=== PATIENT | female | born 1985 ===

== ENCOUNTER 2016-08-13 23:05 | Emergency (ER) | payer SELFPAY | END 2016-08-14 00:15 | disposition left against medical advice (07) | LOC: ED 23:05 | DX: Z53.21 Procedure and treatment not carried out due to patient leaving prior to being seen by health care provider (principal) ==

== ENCOUNTER 2016-09-07 07:59 | Emergency (ER) | payer OTHER ==
[2016-09-07] MEDS ORDERED: FLEXERIL PO ONE (10:00)
[2016-09-07] MEDS ORDERED: MOTRIN PO ONE (10:00)
--- NOTE | 2016-09-07 10:05 | Emergency Department Report ---
ED General Adult HPI - General Chief complaint: Neck Pain/Injury Stated complaint: NECK PAIN Time Seen by Provider: 09/07/16 09:53 Source: patient, family Mode of arrival: Ambulatory Limitations: No Limitations - History of Present Illness Initial comments: PT c/o neck pain without injury x 5 days. PT states the pain can be on either side of her neck. PT states yesterday the left side of her neck was painful and she had a swollen knot. PT states today the right side of her neck is painful and she has a swollen knot. PT denies fevers, chills, cough, sore throat, and fatigue. MD Complaint: neck pain -: Gradual, days(s) (5) Location: neck Radiation: non-radiation Severity scale (0 -10): 6 Quality: constant Consistency: constant Improves with: none Worsens with: none Associated Symptoms: denies other symptoms. denies: chest pain, cough, fever/ chills, nausea/vomiting Treatments Prior to Arrival: none - Related Data Previous Rx's Medication Instructions Recorded Last Taken Type Ibuprofen [Motrin] 600 mg PO Q8H PRN #15 tablet 09/07/16 Unknown Rx methOCARBAMOL [Robaxin TAB] 500 mg PO Q6H PRN #15 tablet 09/07/16 Unknown Rx Allergies Allergy/AdvReac Type Severity Reaction Status Date / Time No Known Allergies Allergy Unverified 09/07/16 08:02 ED Review of Systems ROS: Stated complaint: NECK PAIN Other details as noted in HPI Comment: All other systems reviewed and negative Constitutional: denies: chills, fever, weakness ENT: denies: ear pain, throat pain Respiratory: denies: cough, shortness of breath Gastrointestinal: denies: nausea, vomiting Musculoskeletal: as per HPI. denies: back pain Skin: denies: rash Hematological/Lymphatic: swollen glands. denies: easy bleeding ED Past Medical Hx - Past Medical History Previous Medical History?: No - Surgical History Past Surgical History?: No - Social History Smoking Status: Never Smoker Substance Use Type: Non Opiate Pain - Medications Home Medications: Home Medications Medication Instructions Recorded Confirmed Last Taken Type Ibuprofen [Motrin] 600 mg PO Q8H PRN #15 tablet 09/07/16 Unknown Rx methOCARBAMOL [Robaxin TAB] 500 mg PO Q6H PRN #15 tablet 09/07/16 Unknown Rx ED Physical Exam - General Limitations: No Limitations General appearance: alert, in no apparent distress, other (thin) - Head Head exam: Present: atraumatic, normocephalic - Eye Eye exam: Present: normal appearance, PERRL, EOMI. Absent: conjunctival injection, nystagmus - ENT ENT exam: Present: normal exam, normal orophraynx, mucous membranes moist, TM's normal bilaterally, normal external ear exam - Neck Neck exam: Present: normal inspection, tenderness, full ROM, lymphadenopathy (R ant cervical ) - Respiratory Respiratory exam: Present: normal lung sounds bilaterally. Absent: respiratory distress, wheezes, chest wall tenderness, accessory muscle use, decreased breath sounds - Cardiovascular Cardiovascular Exam: Present: regular rate, normal rhythm, normal heart sounds - GI/Abdominal GI/Abdominal exam: Present: soft. Absent: tenderness - Extremities Exam Extremities exam: Present: normal inspection, full ROM, normal capillary refill. Absent: tenderness - Back Exam Back exam: Present: normal inspection, full ROM. Absent: tenderness, CVA tenderness (R), CVA tenderness (L), muscle spasm, paraspinal tenderness, vertebral tenderness - Neurological Exam Neurological exam: Present: alert, oriented X3, normal gait - Psychiatric Psychiatric exam: Present: normal affect, normal mood - Skin Skin exam: Present: warm, dry, intact, normal color ED Course Vital Signs 09/07/16 09/07/16 08:03 11:52 Temperature 98.3 F Pulse Rate 75 80 Respiratory 20 16 Rate Blood Pressure 113/66 Blood Pressure 114/75 [Left] O2 Sat by Pulse 100 97 Oximetry - Reevaluation(s) Reevaluation #1: 09/07/16 10:05 PT and pt's family member aware of plan of care. Reevaluation #2: 09/07/16 11:40 PT aware of lab results and plan of care. PT aware she will need to follow up with PCP. PT verbalizes understanding. PT states neck pain improved after Motrin/flexeril - Pulse Oximetry Interpretation Digit-Finger Initial Pulse Oximetry Readin Actions Taken: none ED Medical Decision Making - Lab Data Result diagrams: 09/07/16 10:22 09/07/16 10:22 Lab Results 09/07/16 09/07/16 Range/Units 10:22 10:22 WBC 5.1 (4.5-11.0) K/mm3 RBC 4.29 (3.65-5.03) M/mm3 Hgb 11.8 (10.1-14.3) gm/dl Hct 35.3 (30.3-42.9) % MCV 82 (79-97) fl MCH 28 (28-32) pg MCHC 33 (30-34) % RDW 14.3 (13.2-15.2) % Plt Count 290 (140-440) K/mm3 Lymph % (Auto) 41.3 H (13.4-35.0) % Parke % (Auto) 7.7 H (0.0-7.3) % Eos % (Auto) 0.8 (0.0-4.3) % Baso % (Auto) 0.9 (0.0-1.8) % Lymph # 2.1 (1.2-5.4) K/mm3 Parke # 0.4 (0.0-0.8) K/mm3 Eos # 0.0 (0.0-0.4) K/mm3 Baso # 0.0 (0.0-0.1) K/mm3 Seg Neutrophils % 49.3 (40.0-70.0) % Seg Neutrophils # 2.5 (1.8-7.7) K/mm3 Sodium 139 (137-145) mmol/L Potassium 4.0 (3.6-5.0) mmol/L Chloride 102.7 (98-107) mmol/L Carbon Dioxide 23 (22-30) mmol/L Anion Gap 17 mmol/L BUN 18 H (7-17) mg/dL Creatinine 0.6 L (0.7-1.2) mg/dL Estimated GFR > 60 ml/min BUN/Creatinine Ratio 30.00 % Glucose 71 (65-100) mg/dL Calcium 8.6 (8.4-10.2) mg/dL Total Bilirubin 0.30 (0.1-1.2) mg/dL AST 22 (5-40) units/L ALT 19 (7-56) units/L Alkaline Phosphatase 46 (35-129) units/L Total Protein 6.9 (6.3-8.2) g/dL Albumin 4.1 (3.9-5) g/dL Albumin/Globulin Ratio 1.5 % - Differential Diagnosis viral illness, lymphadenopathy, strain Critical Care Time: No Critical care attestation.: If time is entered above; I have spent that time in minutes in the direct care of this critically ill patient, excluding procedure time. ED Disposition Clinical Impression: Anterior cervical adenopathy, Neck pain, acute Disposition: DISCHARGED TO HOME OR SELFCARE Is pt being admited?: No Does the pt Need Aspirin: No Condition: Stable Instructions: Cervical Spine Strain (ED), Lymphadenopathy (ED) Additional Instructions: No driving or ETOH after taking Robaxin Follow up with PCP in 2-3 days Prescriptions: Ibuprofen [Motrin] 600 mg PO Q8H PRN #15 tablet PRN Reason: Pain methOCARBAMOL [Robaxin TAB] 500 mg PO Q6H PRN #15 tablet PRN Reason: Muscle Spasm Referrals: PRIMARY CAREMD [Primary Care Provider] - 3-5 Days MARIA E ALMANZA MD [Staff Physician] - 3-5 Days [facility] [Outside] - 3-5 Days [facility] [Outside] - 3-5 Days Forms: Accompanied Note Time of Disposition: 11:44
[2016-09-07 10:32] LABS: Basophils % (Auto) 0.9 % (0.0-1.8); Eosinophils % (Auto) 0.8 % (0.0-4.3); Hematocrit 35.3 % (30.3-42.9); Hemoglobin 11.8 gm/dl (10.1-14.3); Mean Corpuscular HGB Conc 33 % (30-34); Mean Corpuscular Hemoglobin 28 pg (28-32); Mean Corpuscular Volume 82 fl (79-97); Platelet Count 290 K/mm3 (140-440); Red Blood Count 4.29 M/mm3 (3.65-5.03); Red Cell Distribution Width 14.3 % (13.2-15.2); White Blood Count 5.1 K/mm3 (4.5-11.0)
[2016-09-07 10:54] LABS: Alanine Aminotransferase 19 units/L (7-56); Albumin 4.1 g/dL (3.9-5); Albumin/Globulin Ratio 1.5 %; Alkaline Phosphatase 46 units/L (35-129); Anion Gap 17 mmol/L; Blood Urea Nitrogen 18 mg/dL (7-17); Calcium 8.6 mg/dL (8.4-10.2); Carbon Dioxide 23 mmol/L (22-30); Chloride 102.7 mmol/L (98-107); Glucose 71 mg/dL (65-100); Sodium 139 mmol/L (137-145); Total Protein 6.9 g/dL (6.3-8.2)
[2016-09-07 11:52] VITALS: BP 114/75
== END 2016-09-07 11:54 | disposition home or self-care (01) ==
LOC: ED 07:59
DX: R59.0 Localized enlarged lymph nodes (principal)
CPT/HCPCS: 36415; 80053; 85025; 99283

== ENCOUNTER 2018-02-01 22:27 | Emergency (ER) | payer OTHER ==
[2018-02-01 22:53] VITALS: BP 115/67
[2018-02-01 23:34] LABS: Hematocrit 32.6 % (30.3-42.9); Hemoglobin 11.2 gm/dl (10.1-14.3); Mean Corpuscular HGB Conc 34 % (30-34); Mean Corpuscular Hemoglobin 28 pg (28-32); Mean Corpuscular Volume 83 fl (79-97); Platelet Count 312 K/mm3 (140-440); Red Blood Count 3.94 M/mm3 (3.65-5.03); Red Cell Distribution Width 14.1 % (13.2-15.2)
[2018-02-02 00:09] LABS: BUN/Creatinine Ratio 18; Blood Urea Nitrogen 11 mg/dL (7-17); Calcium 9.3 mg/dL (8.4-10.2); Hemolysis Index 11
[2018-02-02 00:44] LABS: Bacteria,Urine 1+ /HPF (Negative); Bilirubin,Urine NEG (Negative); Blood,Urine NEG (Negative); Calcium Oxalate Crystals,Urine 2+; Color,Urine Yellow (Yellow); Mucus,Urine 2+ /HPF; Protein,Urine <15 mg/dL mg/dL (Negative); Urobilinogen,Urine < 2.0 mg/dL (<2.0)
[2018-02-02] MEDS ORDERED: KEFLEX PO ONE (01:46)
[2018-02-02] MEDS ORDERED: TYLENOL PO ONE (01:46)
--- NOTE | 2018-02-02 02:23 | Emergency Department Report ---
ED General Adult HPI - General Chief complaint: Dizziness Stated complaint: SOB 6 WEEKS PREG Time Seen by Provider: 02/02/18 01:30 Source: patient Mode of arrival: Ambulatory Limitations: No Limitations - History of Present Illness Initial comments: Patient is a 32-year-old Afro-Lithuanian female who is 6 weeks . Her dizziness intermittent shortness of breath 3 weeks is no nausea or vomiting no headache no fever or chills pt is G3,P2, A0 state symptom relieved by rest worse in am, pt denies vaginal bleeding no vaginal discharge pt is tolerating po intake at this time without n/v last dizziness episode was 1 week ao. Onset/Timin -: week(s) Radiation: non-radiation Severity scale (0 -10): 4 Consistency: intermittent Improves with: rest Worsens with: movement Associated Symptoms: confusion. denies: chest pain, cough, diaphoresis, fever/ chills, headaches, loss of appetite, malaise, nausea/vomiting, rash, seizure, shortness of breath, syncope Treatments Prior to Arrival: none - Related Data Previous Rx's Medication Instructions Recorded Last Taken Type Ibuprofen [Motrin] 600 mg PO Q8H PRN #15 tablet 09/07/16 Unknown Rx methOCARBAMOL [Robaxin TAB] 500 mg PO Q6H PRN #15 tablet 09/07/16 Unknown Rx Acetaminophen [Tylenol] 650 mg PO QID PRN #30 capsule 02/02/18 Unknown Rx Cephalexin [Keflex] 500 mg PO BID #20 capsule 02/02/18 Unknown Rx diphenhydrAMINE [Benadryl CAP] 25 mg PO Q8HR PRN #30 capsule 02/02/18 Unknown Rx Allergies Allergy/AdvReac Type Severity Reaction Status Date / Time No Known Allergies Allergy Verified 02/02/18 01:49 ED Review of Systems ROS: Stated complaint: SOB 6 WEEKS PREG Other details as noted in HPI Constitutional: denies: chills, fever Eyes: denies: eye pain, eye discharge, vision change ENT: denies: ear pain, throat pain Respiratory: denies: cough, shortness of breath, wheezing Cardiovascular: denies: chest pain, palpitations Endocrine: no symptoms reported Gastrointestinal: denies: abdominal pain, nausea, diarrhea Genitourinary: denies: urgency, dysuria, discharge Musculoskeletal: denies: back pain, joint swelling, arthralgia, myalgia Skin: denies: rash, lesions Neurological: denies: headache, weakness, paresthesias Psychiatric: denies: anxiety, depression Hematological/Lymphatic: denies: easy bleeding, easy bruising ED Past Medical Hx - Past Medical History Previous Medical History?: No - Surgical History Past Surgical History?: No - Social History Smoking Status: Never Smoker Substance Use Type: None - Medications Home Medications: Home Medications Medication Instructions Recorded Confirmed Last Taken Type Ibuprofen [Motrin] 600 mg PO Q8H PRN #15 tablet 09/07/16 Unknown Rx methOCARBAMOL [Robaxin TAB] 500 mg PO Q6H PRN #15 tablet 09/07/16 Unknown Rx Acetaminophen [Tylenol] 650 mg PO QID PRN #30 capsule 02/02/18 Unknown Rx Cephalexin [Keflex] 500 mg PO BID #20 capsule 02/02/18 Unknown Rx diphenhydrAMINE [Benadryl CAP] 25 mg PO Q8HR PRN #30 capsule 02/02/18 Unknown Rx ED Physical Exam - General Limitations: No Limitations General appearance: alert, in no apparent distress - Head Head exam: Present: atraumatic, normocephalic - Eye Eye exam: Present: normal appearance, PERRL, EOMI Pupils: Present: normal accommodation - ENT ENT exam: Present: normal orophraynx, mucous membranes dry, mucous membranes moist, TM's normal bilaterally - Neck Neck exam: Present: normal inspection, tenderness, meningismus, full ROM. Absent: lymphadenopathy, thyromegaly - Respiratory Respiratory exam: Present: wheezes. Absent: rhonchi, stridor, chest wall tenderness - Cardiovascular Cardiovascular Exam: Present: regular rate, normal rhythm, normal heart sounds. Absent: systolic murmur, diastolic murmur, rubs, gallop - GI/Abdominal GI/Abdominal exam: Present: soft, normal bowel sounds. Absent: tenderness - Rectal Rectal exam: Present: deferred - External exam: Present: normal external exam Speculum exam: Present: normal speculum exam - Extremities Exam Extremities exam: Present: normal inspection, full ROM, pedal edema, joint swelling. Absent: tenderness - Back Exam Back exam: Present: normal inspection, full ROM, tenderness, muscle spasm. Absent: CVA tenderness (R), CVA tenderness (L), paraspinal tenderness, vertebral tenderness, rash noted - Neurological Exam Neurological exam: Present: alert, oriented X3, CN II-XII intact, normal gait, reflexes normal - Expanded Neurological Exam Expanded Patient oriented to: Present: person, place, time Speech: Present: fluid speech Cranial nerves: EOM's Intact: Normal, Gag Reflex: Normal, Tongue Deviation: Normal, Nystagmus: Normal, Facial Sensation: Normal, Facial Palsy with Forehead Movement: Normal, Facial Palsy without Forehead Movement: Normal Cerebellar function: Finger to Nose: Normal, Heel to [place]: Normal, Romberg: Normal Upper motor neuron: Javi Neglect: Normal, Pronator Drift: Normal, Babinski Sign : Normal, Sensory Extinction: Normal Sensory exam: Upper Extremity Light Touch: Normal, Upper Extremity Pin Prick: Normal, Upper Extremity Temperature: Normal, UE 2 Point Discrimination: Normal, Lower Extremity Light Touch: Normal, Lower Extremity Pin Prick: Normal, Lower Extremity Temperature: Normal, LE 2 Point Discrimination: Normal Motor strength exam: RUE: 5, LUE: 5, RLE: 5, LLE: 5 DTR: bicep (R): 2+, bicep (L): 2+, tricep (R): 2+, tricep (L): 2+, knee (R): 2+ , knee (L): 2+, ankle (R): 2+, ankle (L): 2+ Best Eye Response (Hugo): (4) open spontaneously Best Motor Response (Hugo): (6) obeys commands Best Verbal Response (Dante): (5) oriented Dante Total: 15 - Psychiatric Psychiatric exam: Present: normal affect, normal mood - Skin Skin exam: Present: warm, dry, intact, normal color. Absent: rash ED Course Vital Signs 02/01/18 02/01/18 22:52 22:54 Temperature 98.4 F 98.4 F Pulse Rate 71 100 H Respiratory 18 18 Rate Blood Pressure 115/67 115/67 O2 Sat by Pulse 100 100 Oximetry ED Medical Decision Making - Lab Data Result diagrams: 02/01/18 23:19 02/01/18 23:19 - EKG Data -: EKG Interpreted by Nd EKG shows normal: sinus rhythm (interp by ED attending ) Rate: normal - EKG Data Interpretation: no acute changes - Medical Decision Making UA support UTI, all other labesed WNL, plan: keflex 500 mg po bid follow up with pcp in 2-3 dfays follow up with OBGYN as scheduled pt vergbalized agrrement and understanding of discharged plan. pt for dc to home in stable condition Critical care attestation.: If time is entered above; I have spent that time in minutes in the direct care of this critically ill patient, excluding procedure time. ED Disposition Clinical Impression: UTI (urinary tract infection) during Qualifiers: Trimester: first trimester Qualified Code(s): O23.41 - Unspecified infection of urinary tract in , first trimester Disposition: DC-01 TO HOME OR SELFCARE Is pt being admited?: No Does the pt Need Aspirin: No Condition: Stable Instructions: Urinary Tract Infection in Women (ED) Prescriptions: Acetaminophen [Tylenol] 650 mg PO QID PRN #30 capsule PRN Reason: Pain , Severe (7-10) Cephalexin [Keflex] 500 mg PO BID #20 capsule diphenhydrAMINE [Benadryl CAP] 25 mg PO Q8HR PRN #30 capsule PRN Reason: dizziness Referrals: OUSMANE GODFREY MD [Staff Physician] - 3-5 Days Forms: Work/School Release Form(ED) Time of Disposition: 02:38
== END 2018-02-02 04:54 | disposition home or self-care (01) ==
LOC: ED 22:27
DX: O23.41 Unspecified infection of urinary tract in pregnancy, first trimester (principal); O26.891 Other specified pregnancy related conditions, first trimester; R42 Dizziness and giddiness; R06.02 Shortness of breath; Z3A.01 Less than 8 weeks gestation of pregnancy
CPT/HCPCS: 36415; 80048; 81001; 84702; 85027; 93005; 93010; 99283

== ENCOUNTER 2018-09-10 19:35 | Inpatient (IN) | payer OTHER ==
[2018-09-10] MEDS ORDERED: SUBLIMAZE IV PRN (20:28)
[2018-09-10] MEDS ORDERED: XYLOCAINE 2% INFILTRATI ONE ×2 (20:28→23:55)
[2018-09-10] MEDS ORDERED: BRETHINE SUB-Q PRN (20:28)
--- NOTE | 2018-09-10 20:35 | History and Physical Report ---
History of Present Illness Date of examination: 09/10/18 Date of admission: 09/10/2018 Chief complaint: Contractions History of present illness: 33 year old female presents to L&D with contractions; leaking of fluid with meconium fluid noted upon arrival to triage today. Patient reports active movement. Patient denies vaginal bleeding. Patient has received care at [facility]. LMP 12/12/17. EDC 09/18/18. significant for the following: UTI (treated with Cephalexin), hemoglobin C trait, vitamin D deficiency (supplemented with Vitamin D), lapse in care, anemia (supplemented with iron). labs are as follows: O+, antibody screen negative, pap smear normal, rubella immune, RPR nonreactive, hepatitis B surface antigen negative, HIV negative, hemoglobin electrophoresis hemoglobin C trait, GC negative, CT negati ve, trichomonas negative, quad screen negative, GBS negative, 1 hour sugar test 92. 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 denies: smoking, alcohol abuse, prescription drug abuse, IV drug use - Obstetrical History Expected Date of Delivery: 09/18/18 Actual Gestation: 38 Week(s) 6 Day(s) : 3 Para: 2 Hx # Term Pregnancies: 3 Number of Pregnancies: 0 Spontaneous Abortions: 0 Induced : 0 Number of Living Children: 2 Medications and Allergies Allergies Allergy/AdvReac Type Severity Reaction Status Date / Time No Known Allergies Allergy Verified 02/02/18 01:49 Home Medications Medication Instructions Recorded Confirmed Last Taken Type Ferrous Sulfate [Iron 325 MG] 325 mg PO QDAY 09/10/18 09/10/18 09/09/18 History Review of Systems All systems: negative (leaking of fluid and contractions) - Vital Signs Vital signs: Vital Signs Pulse Pulse Ox 87 98 09/10/18 19:57 09/10/18 19:57 Temp Pulse Resp BP Pulse Ox 98.5 F 83 22 134/91 100 09/10/18 19:59 09/10/18 20:27 09/10/18 19:59 09/10/18 20:17 09/10/18 20:27 - Physical Exam Abdomen: Positive: normal appearance, soft. Negative: distention, tenderness, guarding, rigidity Genitourinary (Female): Positive: normal external genitalia, normal perenium. Negative: perineal/vulvar lesions Vagina: Positive: other (meconium stained amniotic fluid) Uterus: Positive: enlarged (size=dates) Anus/Rectum: Positive: normal perianal skin Extremities: Positive: normal. Negative: tenderness, edema - Obstetrical FHR: category 1 Uterine Contraction Monitor Mode: External Cervical Dilatation: 6 (Exam per RN upon admission) Uterine Contraction Pattern: Regular Uterine Contraction Intensity: Moderate Results All other labs normal. Assessment and Plan A: at 38 weeks, 6 days gestation. Active advanced labor. SROM with meconium stained amniotic fluid. GBS negative. P: Admit. Continuous EFM. Anticipate vaginal .
[2018-09-10 20:58] LABS: Hemoglobin 10.7 gm/dl (10.1-14.3); Mean Corpuscular HGB Conc 34 % (30-34); Mean Corpuscular Volume 84 fl (79-97); Platelet Count 293 K/mm3 (140-440); Red Blood Count 3.82 M/mm3 (3.65-5.03); Red Cell Distribution Width 17.9 % (13.2-15.2)
[2018-09-10] MEDS ORDERED: LACTATED RINGERS 1,000 ML IV SCH (21:00)
[2018-09-10] MEDS ORDERED: PITOCin/NS 20 UNIT/1000ML DRIP 20 UNITS/1,000 ML BAG IV SCH (21:00)
[2018-09-11] MEDS ORDERED: PERCOCET 5/325 PO PRN (00:19)
[2018-09-11] MEDS ORDERED: LANSINOH TP PRN (00:19)
[2018-09-11] MEDS ORDERED: ZOFRAN IV PRN (00:19)
[2018-09-11] MEDS ORDERED: DULCOLAX PR PRN (00:19)
[2018-09-11] MEDS ORDERED: ANUCORT-HC PR PRN (00:19)
[2018-09-11] MEDS ORDERED: TORADOL IV PRN (00:19)
[2018-09-11] MEDS ORDERED: PHENERGAN PO PRN (00:19)
[2018-09-11] MEDS ORDERED: DERMOPLAST TP PRN (00:19)
[2018-09-11] MEDS ORDERED: TYLENOL PO PRN (00:19)
[2018-09-11] MEDS ORDERED: TUCKS PAD TP PRN (00:19)
[2018-09-11] MEDS ORDERED: PHENERGAN PR PRN (00:19)
[2018-09-11] MEDS ORDERED: BENADRYL PO PRN (00:19)
[2018-09-11] MEDS ORDERED: MILK OF MAGNESIA PO PRN (00:19)
--- NOTE | 2018-09-11 00:30 | Procedure Note ---
OB Delivery Note - Delivery Date of Delivery: 09/11/18 Surgeon: OUSMANE GODFREY Estimated blood loss: 200cc - Vaginal Delivery presentation: vertex Delivery position: OA Intrapartum events: none Delivery induction: none Delivery monitor: external FHT Route of delivery: Delivery placenta: spontaneous Delivery cord: nuchal cord Episiotomy: none Delivery laceration: 1st degree Delivery repair: vicryl Anesthesia: local Delivery comments: Patient became fully dilated. There was severe variable decelerations and meconium amniotic fluid. She delivered a live male from and CHARLES position with Apgars of 8 at 1 min and 9 at 5 mins at 11:49 PM. There was nuchal cord x 1 with compression. Bulb suction of the mouth and nose was performed, the cord was clamped x 2 and cut, and the infant was handed to the waiting rfid specialist. Baby weighs 6 lbs 14 oz. Cord blood was collected. The placenta was delivered spontaneously and it was complete with a 3-vessel cord. A first degree perineal laceration was sustained. It was repaired with 3 vicryl sutures. EBL was 200 cc. Patient remains stable.
[2018-09-11] MEDS ORDERED: SODIUM CHLORIDE FLUSH SYRINGE 10 ML IV PRN (01:00)
[2018-09-11] MEDS ORDERED: PITOCin/NS 20 UNIT/1000ML DRIP 20 UNITS/1,000 ML BAG IV SCH (01:00)
[2018-09-11 01:58] LABS: Bacteria,Urine 1+ /HPF (Negative); Bilirubin,Urine NEG (Negative); Blood,Urine LG (Negative); Color,Urine Yellow (Yellow); Mucus,Urine FEW /HPF; Urobilinogen,Urine < 2.0 mg/dL (<2.0)
[2018-09-11 02:03] LABS: RBC,Urine > 182.0 /HPF (0.0-6.0)
[2018-09-11] MEDS: SENOKOT S PO SCH ×3 (02:09→21:50)
[2018-09-11] MEDS: IBUPROFEN PO SCH ×4 (02:09→18:10)
[2018-09-11 05:59] LABS: Alanine Aminotransferase 11 units/L (7-56); Albumin 2.7 g/dL (3.9-5); BUN/Creatinine Ratio 18; Blood Urea Nitrogen 9 mg/dL (7-17); Calcium 8.4 mg/dL (8.4-10.2); Hemolysis Index 4
[2018-09-11 06:18] LABS: Uric Acid 4.9 mg/dL (3.5-7.6)
[2018-09-11] MEDS: PRENATAL VITAMIN PO SCH (10:45)
[2018-09-11] MEDS: COLACE PO SCH ×2 (10:45→21:49)
[2018-09-11 12:32] LABS: Hemoglobin 9.2 gm/dl (10.1-14.3)
--- NOTE | 2018-09-11 13:21 | Progress Note ---
Assessment and Plan - Patient Problems (1) Status post normal vaginal delivery Current Visit: Yes Status: Acute Plan to address problem: PPD 1 - stable Continue routine orders Discharge to home on 09/12/18 Desires control pills for contraception Follow-up at [facility] as needed or in 6 weeks for exam (2) Anemia due to blood loss, acute Current Visit: Yes Status: Acute Plan to address problem: Asymptomatic Iron therapy initiated Subjective - Subjective Date of service: 09/11/18 Principal diagnosis: PPD #1; s/p Interval history: see H&P and OB Delivery Procedure Note Patient reports: appetite normal, voiding normally, pain well controlled, ambulating normally, no dizzy ambulation [place]: doing well, nursing well Objective - Vital Signs Latest vital signs: Vital Signs Temp Pulse Resp BP Pulse Ox 09/11/18 09:16 98.3 F 82 20 106/65 99 09/11/18 06:13 18 09/11/18 03:42 18 09/11/18 03:09 18 09/11/18 00:52 75 135/67 09/11/18 00:29 89 99 09/11/18 00:24 95 H 98 09/11/18 00:22 94 H 124/72 09/11/18 00:19 89 98 09/11/18 00:14 85 98 09/11/18 00:09 90 99 09/11/18 00:07 89 119/62 09/11/18 00:04 91 H 98 09/10/18 23:59 88 98 09/10/18 23:54 88 100 09/10/18 23:53 92 H 122/81 09/10/18 23:49 84 100 09/10/18 23:46 104 H 91 09/10/18 23:43 83 100 09/10/18 23:37 79 98 09/10/18 23:32 77 100 09/10/18 22:50 82 169/92 09/10/18 22:18 96 H 135/79 09/10/18 22:02 66 145/88 09/10/18 21:49 85 141/100 09/10/18 21:19 75 135/77 09/10/18 20:56 80 136/84 09/10/18 20:55 98.5 F 16 09/10/18 20:37 75 100 09/10/18 20:32 75 128/86 99 09/10/18 20:27 83 100 09/10/18 20:22 89 99 09/10/18 20:17 82 134/91 99 09/10/18 20:16 83 141/91 09/10/18 20:12 87 99 09/10/18 20:07 71 99 09/10/18 20:02 74 99 09/10/18 19:59 98.5 F 71 22 132/84 09/10/18 19:57 87 98 Intake and Output 09/10/18 09/11/18 09/11/18 23:59 07:59 15:59 Intake Total 240 Balance 240 Intake: Oral 240 Other: Total, Intake Amount 240 # Voids Void 2 Weight 77.564 kg Estimated Blood Loss 200 - Exam Cardiovascular: Present: Regular rate Lungs: Present: Clear to auscultation Abdomen: Present: normal appearance, soft Vulva: both: laceration/episiotomy (well approximated) Uterus: Present: normal, firm, fundal height at umbilicus Extremities: Present: normal Comments: small lochia - Labs Labs: Abnormal lab results 09/10/18 09/11/18 09/11/18 Range/Units 20:30 01:00 05:19 Hgb (10.1-14.3) gm/dl Hct (30.3-42.9) % RDW 17.9 H (13.2-15.2) % Chloride 109.8 H (98-107) mmol/L Carbon Dioxide 19 L (22-30) mmol/L Creatinine 0.5 L (0.7-1.2) mg/dL Glucose 117 H (65-100) mg/dL Lactate Dehydrogenase 195 H (91-180) units/L Total Protein 5.7 L (6.3-8.2) g/dL Albumin 2.7 L (3.9-5) g/dL Urine WBC (Auto) 8.0 H (0.0-6.0) /HPF 09/11/18 Range/Units 12:18 Hgb 9.2 L (10.1-14.3) gm/dl Hct 27.0 L (30.3-42.9) % RDW (13.2-15.2) % Chloride (98-107) mmol/L Carbon Dioxide (22-30) mmol/L Creatinine (0.7-1.2) mg/dL Glucose (65-100) mg/dL Lactate Dehydrogenase (91-180) units/L Total Protein (6.3-8.2) g/dL Albumin (3.9-5) g/dL Urine WBC (Auto) (0.0-6.0) /HPF
--- NOTE | 2018-09-11 13:24 | Discharge Summary ---
Providers - Providers Date of Admission: 09/10/18 20:39 Date of discharge: 09/12/18 Attending physician: OUSMANE GODFREY MD Primary care physician: OUSMANE GODFREY MD Hospitalization Reason for admission: active labor, IUP at term Delivery: Episiotomy: none Laceration: 1st degree (perineal) Other procedures: none complications: none Discharge diagnosis: IUP at term delivered baby: male Hospital course: Uncomplicated Condition at discharge: Stable Disposition: WA-01 TO HOME OR SELFCARE - Discharge Diagnoses (1) Status post normal vaginal delivery Status: Acute (2) Anemia due to blood loss, acute Status: Acute Comment: Asymptomatic Continue iron therapy Plan - Discharge Medications Prescriptions: Ferrous Sulfate [Feosol 325 MG tab] 325 mg PO BID #60 tablet - Provider Discharge Summary Activity: routine, no sex for 6 weeks, no heavy lifting 4 weeks, no strenuous exercise Diet: routine Instructions: routine Additional instructions: [] Smoking cessation referral if applicable(refer to patient education folder for contact #) [] Refer to [facility] Booklet Call your doctor immediately for: * Fever > 100.5 * Heavy vaginal bleeding ( >1 pad per hour) * Severe persistent headache * Shortness of breath * Reddened, hot, painful area to leg or breast * Drainage or odor from incision. * Keep incision clean and dry at all times and follow doctor's instructions regarding bathing/showering - Follow up plan Follow up: OUSMANE GODFREY MD [Primary Care Provider] - 6 Weeks (Follow-up at [facility] as needed or in 6 weeks for exam)
[2018-09-11] MEDS: FEOSOL PO SCH (21:49)
[2018-09-12] MEDS: IBUPROFEN PO SCH ×4 (00:06→18:40)
[2018-09-12] MEDS: COLACE PO SCH (10:10)
[2018-09-12] MEDS: SENOKOT S PO SCH (10:10)
[2018-09-12] MEDS: FEOSOL PO SCH (10:10)
[2018-09-12] MEDS: PRENATAL VITAMIN PO SCH (10:10)
[2018-09-12 16:50] VITALS: BP 124/78
== END 2018-09-12 19:35 | disposition home or self-care (01) | DRG 806 ==
LOC: TRG 19:35 → LD 20:39 → OB 09-11 01:14
PROVIDERS: ADMIT Obstetrics & Gynecology; ATTEND Obstetrics & Gynecology
PROC: 10E0XZZ Delivery of Products of Conception, External Approach (ICD-10-PCS; principal; 2018-09-11)
PROC: 0HQ9XZZ Repair Perineum Skin, External Approach (ICD-10-PCS; 2018-09-11)
DX: O77.0 Labor and delivery complicated by meconium in amniotic fluid (principal); D62 Acute posthemorrhagic anemia; Z37.0 Single live birth; O70.0 First degree perineal laceration during delivery; O90.81 Anemia of the puerperium; O69.1XX0 Labor and delivery complicated by cord around neck, with compression, not applicable or unspecified; Z3A.38 38 weeks gestation of pregnancy
CPT/HCPCS: 36415; 80053; 81001; 83615; 84550; 85014; 85018; 85027; 86592; 86850; 86900; 86901; G0378; J2590; J3010; J7120

== ENCOUNTER 2020-02-24 10:35 | Inpatient (IN) | payer OTHER, SELFPAY ==
[2020-02-24] MEDS ORDERED: TERBUTALINE 1 MG/1 ML INJ SUB-Q PRN (14:17)
[2020-02-24] MEDS ORDERED: ePHEDrine SULFATE 50 MG/1 ML INJ IV PRN (14:17)
[2020-02-24] MEDS ORDERED: MINERAL OIL 30 ML ORAL LIQD PO PRN (14:17)
--- NOTE | 2020-02-24 14:20 | History and Physical Report ---
History of Present Illness Date of examination: 02/24/20 Date of admission: 02/24/2020 Chief complaint: Contractions, LOF. History of present illness: 34 year old presents with complaint of contractions and leaking of fluid. Patient received care at [facility] and records were able to be accessed via computer. LMP 05/21/2019. EDC 02/25/2020. significant for the following: low lying placenta (resolved), hemoglobin C trait, noncompliant with care (has not been seen at the office since 12/18/2019), GBS unknown. labs are as follows: O+, antibody screen negative, rubella immune, hepatitis B surface antigen negative, HIV negative, RPR nonreactive, gonorrhea negative, chlamydia negative, trichomonas negative, GBS unknown, 1 hour sugar test 127, quad screen negative, hemoglobin electrophoresis showed hemoglobin C trait. Past History Past Medical History: other (hemoglobin C trait) Past Surgical History: no surgical history [facility] History: denies: chlamydia, gonorrhea, hepatitis B, hepatitis C, herpes, HIV, syphilis, trichomonas Family/Genetic History: none Social history: , lives with family, full code. denies: smoking, alcohol abuse, prescription drug abuse, IV drug use - Obstetrical History Expected Date of Delivery: 02/25/20 Actual Gestation: 39 Week(s) 6 Day(s) : 4 Para: 3 Hx # Term Pregnancies: 3 Number of Pregnancies: 0 Spontaneous Abortions: 0 Induced : 0 Number of Living Children: 3 Medications and Allergies Allergies Allergy/AdvReac Type Severity Reaction Status Date / Time No Known Allergies Allergy Verified 02/02/18 01:49 Home Medications Medication Instructions Recorded Confirmed Last Taken Type Ferrous Sulfate [Iron 325 MG] 325 mg PO QDAY 09/10/18 09/10/18 09/09/18 History Ferrous Sulfate [Feosol 325 MG tab] 325 mg PO BID #60 tablet 09/11/18 Unknown Rx Active Meds: Active Medications Ephedrine Sulfate (Ephedrine Sulfate) 10 mg IV Q2M PRN PRN Reason: Hypotension Fentanyl (Sublimaze) 100 mcg IV Q2H PRN PRN Reason: Pain,Severe (7-10) LABOR PAIN Oxytocin/Sodium Chloride (Pitocin/Ns 30 Unit/500ml) 30 units in 500 mls @ 2 mls/hr IV TITR BORIS; Protocol Lactated Ringer's (Lactated Ringers) 1,000 mls @ 125 mls/hr IV DIRECT BORIS Ampicillin Sodium (Ampicillin/Ns 2 Gm/100 Ml) 2 gm in 100 mls @ 100 mls/hr IV ONCE ONE; Protocol Stop: 02/24/20 15:16 Lidocaine (Xylocaine 2%) 20 ml INFILTRATI ONCE ONE Stop: 02/24/20 14:18 Mineral Oil (Mineral Oil) 30 ml PO QHS PRN PRN Reason: Constipation Terbutaline Sulfate (Brethine) 0.25 mg SUB-Q ONCE PRN PRN Reason: Hyperstimulation/Hypertonicity Review of Systems All systems: negative (contractions and LOF.) - Vital Signs Vital signs: Vital Signs Temp Pulse Resp BP Pulse Ox 98.3 F 98 H 18 137/80 98 02/24/20 10:43 02/24/20 10:43 02/24/20 10:43 02/24/20 10:43 02/24/20 10:43 Temp Pulse Resp BP Pulse Ox 98.3 F 74 18 137/80 99 02/24/20 10:43 02/24/20 14:15 02/24/20 10:43 02/24/20 10:55 02/24/20 14:15 - Physical Exam Abdomen: Positive: normal appearance, soft. Negative: distention, tenderness, guarding, rigidity Genitourinary (Female): Positive: normal external genitalia, normal perenium. Negative: perineal/vulvar lesions Vagina: Positive: other (small amount of meconium stained amniotic fluid seen) Uterus: Positive: enlarged. Negative: tender Anus/Rectum: Positive: normal perianal skin - Obstetrical FHR: category 1 Uterine Contraction Monitor Mode: External Cervical Dilatation: 4 Cervical Effacement Percentage: 60 station: -2 Uterine Contraction Pattern: Regular Uterine Contraction Intensity: Moderate Results Result Diagrams: 02/24/20 Unknown All other labs normal. Assessment and Plan A: at 39 weeks, 6 days gestation. SROM, labor. GBS unknown. Noncompliant with PNC. P: Admit. EFM. GBS prophylaxis. Augmentation of labor as needed. Epidural if desired. Anticipate vaginal .
[2020-02-24] MEDS ORDERED: AMPICILLIN/NS 2 GM/100 ML 2 GM/100 ML BAG IV ONE (14:30)
[2020-02-24 14:33] LABS: Hematocrit 33.7 % (30.3-42.9); Hemoglobin 11.6 gm/dl (10.1-14.3); Mean Corpuscular HGB Conc 34 % (30-34); Mean Corpuscular Volume 85 fl (79-97); Platelet Count 229 K/mm3 (140-440); Red Blood Count 3.95 M/mm3 (3.65-5.03); Red Cell Distribution Width 16.2 % (13.2-15.2)
[2020-02-24] MEDS: LACTATED RINGERS 1,000 ML IV SCH ×2 (14:33→18:07)
[2020-02-24] MEDS ORDERED: LIDOCAINE (2%) 20 MG/1 ML VIAL 20 ML MDV INFILTRATI ONE (15:00)
[2020-02-24] MEDS ORDERED: OXYTOCIN DRIP 30 UNITS/500 ML BAG IV SCH ×2 (15:00→19:00)
[2020-02-24] MEDS ORDERED: MAGNESIUM SULFATE 4 GM/100 ML BAG IV ONE (18:20)
[2020-02-24] MEDS ORDERED: hydrALAZINE 20 MG/1 ML INJ IV PRN (18:21)
[2020-02-24] MEDS ORDERED: FAMOTIDINE 20 MG/2 ML INJ IV ONE (18:27)
[2020-02-24] MEDS ORDERED: AMPICILLIN/NS 1 GM/50 ML 1 GM/50 ML BAG IV SCH (18:30)
--- NOTE | 2020-02-24 18:39 | Event Note ---
Date: 02/24/20 BPs now elevated (170s/100s). Patient denies headache, visual disturbance, or swelling. Reports nausea. Preeclamptic labs ordered. Magnesium sulfate and hydralazine ordered. Consulted with Dr. Haynes re: patient, elevated blood pressure, and interventions ordered/taken. Dr. Haynes in agreement with POC. Discussed with patient and her S.O. POC.
[2020-02-24] MEDS: fentaNYL 100 MCG/2 ML INJ IV PRN ×2 (18:47→18:49)
[2020-02-24] MEDS ORDERED: ONDANSETRON 4 MG/2 ML INJ IV PRN ×2 (19:11→19:13)
[2020-02-24 19:12] LABS: Bilirubin,Urine NEG (Negative); Blood,Urine NEG (Negative); Color,Urine Yellow (Yellow); Mucus,Urine FEW /HPF; Protein,Urine <15 mg/dL mg/dL (Negative); Urobilinogen,Urine < 2.0 mg/dL (<2.0)
[2020-02-24] MEDS ORDERED: ACETAMINOPHEN 325 MG TAB PO ONE (19:12)
[2020-02-24] MEDS ORDERED: NalbUPHINE 10 MG/1 ML INJ IV PRN (19:13)
[2020-02-24] MEDS ORDERED: diphenhydrAMINE 50 MG/ML VIAL IV PRN (19:13)
[2020-02-24] MEDS ORDERED: NALOXONE 2 MG/2 ML INJ IV PRN (19:13)
[2020-02-24] MEDS ORDERED: DEXMEDETOMIDINE 200 MCG/2 ML VIAL IV ONE (19:17)
[2020-02-24 19:18] LABS: Amphetamine Screen,Urine PRESUMPTIVE NEGATIVE; Benzodiazepines Screen,Urine PRESUMPTIVE NEGATIVE; Cannabinoid Screen,Urine PRESUMPTIVE NEGATIVE; Cocaine Screen,Urine PRESUMPTIVE NEGATIVE; Methadone Screen,Urine PRESUMPTIVE NEGATIVE; Opiate Screen,Urine PRESUMPTIVE NEGATIVE
[2020-02-24] MEDS: MAGNESIUM SULFATE 40GM/1000ML 40 GM/1,000 ML BAG IV SCH (19:32)
--- NOTE | 2020-02-24 19:42 | Anesthesia Consultation ---
Anesthesia Consult and Med Hx Date of service: 02/24/20 - Airway Anesthetic Teeth Evaluation: Good ROM Head & Neck: Adequate Mental/Hyoid Distance: Adequate Mallampati Class: Class II Intubation Access Assessment: Good - Pulmonary Exam CTA: Yes - Cardiac Exam Cardiac Exam: RRR - Pre-Operative Health Status ASA Pre-Surgery Classification: ASA2 Proposed Anesthetic Plan: Epidural - Pulmonary Hx Smoking: No Hx Asthma: No COPD: No Hx Pneumonia: No Hx Sleep Apnea: No - Cardiovascular System Hx Hypertension: No Hx Heart Attack/AMI: No - Central Nervous System Hx Seizures: No Hx Psychiatric Problems: No - Gastrointestinal Hx Gastroesophageal Reflux Disease: No - Endocrine Hx Renal Disease: No Hx End Stage Renal Disease: No Hx Insulin Dependent Diabetes: No Hx Non-Insulin Dependent Diabetes: No Hx Hypothyroidism: No Hx Hyperthyroidism: No - Hematic Hx Anemia: No Hx Sickle Cell Disease: No - Other Systems Hx Alcohol Use: No
--- NOTE | 2020-02-24 19:43 | Progress Note ---
Labor Epidural - Labor Epidural Start Time: 19:25 Stop Time: 19:40 Performed by:: AQUILINO GARCIA Procedure: Patient is requesting a laboring epidural for laboring pain. Patient IDed, H&P reviewed, all questions and concerns were answered, and consent was signed. Timeout was performed at bedside. Patient in sitting position. Sterile prep and drape was performed. 3ml of 1% lidocaine skin wheal at L[3]- L [4]. 18- gauge Touhy epidural needle was advanced to loss of resistance with air technique. Negative CSF negative blood. Epidural catheter advanced to [10] centimeters. [-] Aspiration [-] test dose. Sterile dressing applied. Patient tolerated procedure.
[2020-02-24] MEDS ORDERED: fentaNYL-BUPIV 2 MCG/ML-0.125% 200 MCG/100 ML BAG EPIDURAL SCH (20:00)
[2020-02-24 21:18] LABS: Alanine Aminotransferase 17 units/L (7-56); Albumin 3.2 g/dL (3.9-5); Blood Urea Nitrogen 7 mg/dL (7-17); Calcium 8.6 mg/dL (8.4-10.2); Hemolysis Index 41; Uric Acid 4.6 mg/dL (3.5-7.6)
[2020-02-24 21:20] LABS: BUN/Creatinine Ratio 12
[2020-02-24] MEDS ORDERED: WITCH HAZEL/ GLYCERIN PAD TP PRN (21:26)
[2020-02-24] MEDS ORDERED: HYDROcodone/ACETAMINOPHEN 5-325 MG TAB PO PRN (21:26)
[2020-02-24] MEDS ORDERED: MAGNESIUM HYDROXIDE (MOM) ORAL LIQD UDC PO PRN (21:26)
[2020-02-24] MEDS ORDERED: LANOLIN/ZINC/DIMETHICONE (LANSINOH) 7 GM TP PRN (21:26)
--- NOTE | 2020-02-24 21:39 | Procedure Note ---
OB Delivery Note - Delivery Date of Delivery: 02/24/20 Surgeon: NI CHRISTINA Estimated blood loss: 300cc - Vaginal Delivery presentation: vertex Delivery position: OA Intrapartum events: meconium, preeclampsia Delivery induction: none Delivery monitor: external FHT, external uterine Route of delivery: Delivery placenta: spontaneous Delivery cord: 3 umbilical vessels Episiotomy: none Delivery laceration: 1st degree Delivery repair: vicryl Anesthesia: epidural Delivery comments: Spontaneous vaginal delivery at 20:55 of liveborn female infant weighing 7 lb. 3 oz. over first degree perineal laceration with apgars of 8/9. Epidural anesthesia. Delivery of baby was atraumatic. Meconium stained amniotic fluid. NICU was present for delivery due to meconium stained amniotic fluid. 3 vessel cord double clamped and cut and baby was taken to radiant warmer for suctioning. Spontaneous cry and respirations. Cord blood obtained. Spontaneous delivery of intact placenta and membranes by schulz mechanism. EBL 300 cc. Pitocin to IV fluids after delivery of placenta. Fundus firm and midline. Repair of first degree perineal laceration with 3-0 vicryl. No other lacerations noted. Vaginal sweep negative. Sponge and instrument counts correct. Mother and baby stable.
[2020-02-25] MEDS ORDERED: LACTATED RINGERS 1,000 ML ONE ×2 (00:07→13:48)
[2020-02-25] MEDS ORDERED: ACETAMINOPHEN 500 MG TAB PO ONE (04:14)
[2020-02-25 09:43] LABS: Hematocrit 29.4 % (30.3-42.9)
--- NOTE | 2020-02-25 09:55 | Progress Note ---
Assessment and Plan A: S/P Gestational HTN P: Continue monitoring on MgSo4 Anticipate d/c home tomm if stable Subjective - Subjective Date of service: 02/25/20 Patient reports: voiding normally, pain well controlled, other (song in place and draining cl yell colored urine in bsd bag) [place]: doing well, bottle feeding Objective - Vital Signs Latest vital signs: Vital Signs Temp Pulse Resp BP BP Pulse Ox 02/25/20 09:46 106 H 138/86 99 02/25/20 09:41 106 H 99 02/25/20 09:36 101 H 98 02/25/20 09:31 105 H 100 02/25/20 09:26 106 H 99 02/25/20 09:21 103 H 98 02/25/20 09:16 104 H 99 02/25/20 09:14 102 H 132/83 02/25/20 09:11 108 H 100 02/25/20 09:06 100 H 99 02/25/20 09:01 106 H 98 02/25/20 08:56 98 H 98 02/25/20 08:51 88 100 02/25/20 08:46 102 H 100 02/25/20 08:44 90 138/93 02/25/20 08:41 89 99 02/25/20 08:36 91 H 100 02/25/20 08:31 91 H 99 02/25/20 08:26 90 100 02/25/20 08:21 91 H 100 02/25/20 08:16 89 98 02/25/20 08:14 90 120/74 02/25/20 08:11 90 100 02/25/20 08:06 93 H 99 02/25/20 08:01 88 98 02/25/20 07:56 88 98 02/25/20 07:51 87 99 02/25/20 07:46 89 98 02/25/20 07:44 87 132/90 02/25/20 07:41 92 H 99 02/25/20 07:36 93 H 99 02/25/20 07:31 91 H 98 02/25/20 07:26 94 H 98 02/25/20 07:21 92 H 99 02/25/20 07:16 91 H 99 02/25/20 07:14 90 134/86 02/25/20 07:13 98.3 F 18 02/25/20 07:11 90 99 02/25/20 07:10 88 138/86 02/25/20 07:06 94 H 98 02/25/20 07:01 93 H 99 02/25/20 06:56 91 H 98 02/25/20 06:55 95 H 134/79 02/25/20 06:51 89 98 02/25/20 06:46 91 H 98 02/25/20 06:41 89 98 02/25/20 06:40 90 134/80 02/25/20 06:36 93 H 98 02/25/20 06:31 91 H 98 02/25/20 06:26 98 H 98 02/25/20 06:25 97 H 133/81 02/25/20 06:21 90 99 02/25/20 06:16 93 H 98 02/25/20 06:11 96 H 99 02/25/20 06:10 91 H 129/86 02/25/20 06:06 95 H 100 02/25/20 06:01 95 H 98 02/25/20 05:56 94 H 98 02/25/20 05:55 96 H 135/90 02/25/20 05:51 95 H 98 02/25/20 05:46 94 H 98 02/25/20 05:41 94 H 98 02/25/20 05:40 94 H 141/93 02/25/20 05:36 105 H 99 02/25/20 05:31 101 H 98 02/25/20 05:26 94 H 99 02/25/20 05:25 94 H 145/95 02/25/20 05:21 94 H 98 02/25/20 05:16 98 H 99 02/25/20 05:11 98 H 99 02/25/20 05:10 99 H 139/94 02/25/20 05:06 96 H 99 02/25/20 05:01 97 H 99 02/25/20 04:56 96 H 99 02/25/20 04:55 103 H 143/96 02/25/20 04:51 101 H 99 02/25/20 04:46 98 H 99 02/25/20 04:41 95 H 99 02/25/20 04:40 94 H 141/94 02/25/20 04:36 99 H 99 02/25/20 04:31 98 H 99 02/25/20 04:26 96 H 99 02/25/20 04:22 100 H 152/79 02/25/20 04:21 99 H 100 02/25/20 04:16 98 H 98 02/25/20 04:11 97 H 98 02/25/20 04:06 96 H 99 02/25/20 04:01 95 H 98 02/25/20 03:56 99 H 99 02/25/20 03:52 89 140/88 02/25/20 03:51 95 H 99 02/25/20 03:46 96 H 98 02/25/20 03:41 95 H 98 02/25/20 03:36 96 H 98 02/25/20 03:31 94 H 99 02/25/20 03:26 92 H 97 02/25/20 03:22 93 H 135/88 02/25/20 03:21 96 H 98 02/25/20 03:16 93 H 98 02/25/20 03:11 94 H 97 02/25/20 03:06 96 H 98 02/25/20 03:01 95 H 98 02/25/20 02:56 95 H 98 02/25/20 02:52 94 H 135/85 02/25/20 02:51 95 H 98 02/25/20 02:46 90 98 02/25/20 02:41 94 H 99 02/25/20 02:36 92 H 98 02/25/20 02:31 91 H 99 02/25/20 02:26 93 H 99 02/25/20 02:22 90 132/82 02/25/20 02:21 93 H 98 02/25/20 02:16 93 H 98 02/25/20 02:11 89 98 02/25/20 02:06 96 H 99 02/25/20 02:01 94 H 99 02/25/20 01:56 91 H 99 02/25/20 01:52 88 134/84 02/25/20 01:51 91 H 98 02/25/20 01:46 91 H 99 02/25/20 01:41 90 99 02/25/20 01:36 91 H 99 02/25/20 01:31 91 H 99 02/25/20 01:26 86 98 02/25/20 01:22 90 129/80 02/25/20 01:21 91 H 99 02/25/20 01:16 89 99 02/25/20 01:11 101 H 99 02/25/20 01:06 91 H 99 02/25/20 01:01 94 H 99 02/25/20 00:56 99 H 98 02/25/20 00:52 88 129/82 02/25/20 00:51 92 H 99 02/25/20 00:46 89 99 02/25/20 00:41 93 H 98 02/25/20 00:36 91 H 98 02/25/20 00:31 105 H 99 02/25/20 00:26 98 H 98 02/25/20 00:22 90 127/77 02/25/20 00:21 91 H 99 02/25/20 00:16 88 99 02/25/20 00:11 89 99 02/25/20 00:06 97 H 99 02/25/20 00:01 89 99 02/24/20 23:56 96 H 100 02/24/20 23:52 93 H 124/74 02/24/20 23:51 95 H 99 02/24/20 23:46 95 H 99 02/24/20 23:41 92 H 98 02/24/20 23:36 91 H 98 02/24/20 23:31 91 H 98 02/24/20 23:26 94 H 98 02/24/20 23:22 96 H 127/76 02/24/20 23:21 94 H 98 02/24/20 23:16 94 H 99 02/24/20 23:11 85 99 02/24/20 23:06 95 H 99 02/24/20 23:01 95 H 99 02/24/20 22:56 96 H 99 02/24/20 22:51 94 H 99 02/24/20 22:47 97 H 128/73 02/24/20 22:46 99 H 99 02/24/20 22:41 95 H 99 02/24/20 22:36 100 H 99 02/24/20 22:32 96 H 130/73 02/24/20 22:31 99 H 100 02/24/20 22:26 96 H 100 02/24/20 22:21 101 H 100 02/24/20 22:17 99 H 124/73 02/24/20 22:16 100 H 100 02/24/20 22:11 100 H 100 02/24/20 22:06 105 H 100 02/24/20 22:02 103 H 116/69 02/24/20 22:01 105 H 100 02/24/20 21:56 104 H 100 02/24/20 21:51 102 H 100 02/24/20 21:47 103 H 116/69 02/24/20 21:46 105 H 100 02/24/20 21:41 106 H 100 02/24/20 21:36 106 H 100 02/24/20 21:32 107 H 105/68 02/24/20 21:31 107 H 100 02/24/20 21:30 107 H 128/65 02/24/20 21:26 111 H 100 02/24/20 21:21 110 H 100 02/24/20 21:16 109 H 100 02/24/20 21:11 113 H 100 02/24/20 21:06 108 H 100 02/24/20 21:02 109 H 124/56 02/24/20 21:01 111 H 100 02/24/20 20:56 118 H 100 02/24/20 20:51 118 H 100 02/24/20 20:46 112 H 100 02/24/20 20:41 120 H 100 02/24/20 20:36 110 H 100 02/24/20 20:32 121 H 133/92 02/24/20 20:31 124 H 100 02/24/20 20:26 120 H 100 02/24/20 20:21 124 H 100 02/24/20 20:18 100 H 137/87 02/24/20 20:16 133 H 100 02/24/20 20:11 131 H 100 02/24/20 20:06 105 H 98 02/24/20 20:02 100 H 92/48 02/24/20 20:01 100 H 99 02/24/20 19:56 90 100 02/24/20 19:52 82 107/57 02/24/20 19:51 79 100 02/24/20 19:46 87 99 02/24/20 19:42 103 H 117/55 02/24/20 19:41 110 H 99 02/24/20 19:36 98 H 99 02/24/20 19:34 103 H 124/60 02/24/20 19:31 103 H 99 02/24/20 19:30 72 139/70 02/24/20 19:28 111 H 125/63 02/24/20 19:26 66 L 02/24/20 19:24 102 H 139/70 02/24/20 19:23 31 L 02/24/20 19:22 117 H 135/74 02/24/20 19:20 107 H 137/66 100 02/24/20 19:18 104 H 148/76 02/24/20 19:16 95 H 149/75 02/24/20 19:15 107 H 100 02/24/20 19:14 103 H 151/78 02/24/20 19:12 107 H 130/63 02/24/20 19:10 109 H 143/81 100 02/24/20 19:08 114 H 151/85 02/24/20 19:06 99.8 F H 116 H 12 159/94 151/85 100 02/24/20 19:05 109 H 100 02/24/20 19:04 104 H 160/84 02/24/20 19:02 97 H 149/82 02/24/20 19:00 100 H 156/83 100 02/24/20 18:58 99 H 150/83 02/24/20 18:56 101 H 148/82 02/24/20 18:55 104 H 100 02/24/20 18:54 93 H 164/97 02/24/20 18:50 72 190/110 100 02/24/20 18:45 76 100 02/24/20 18:44 85 190/110 02/24/20 18:40 71 100 02/24/20 18:35 75 100 02/24/20 18:30 80 100 02/24/20 18:25 69 100 02/24/20 18:20 73 100 02/24/20 18:15 78 100 02/24/20 18:10 72 173/109 100 02/24/20 18:05 73 100 02/24/20 18:04 71 172/112 02/24/20 18:02 93 02/24/20 18:00 82 99 02/24/20 17:55 69 100 02/24/20 17:53 44 L 02/24/20 17:50 65 99 02/24/20 17:45 73 99 02/24/20 17:40 65 99 02/24/20 17:35 67 99 02/24/20 17:30 64 100 02/24/20 17:25 65 100 02/24/20 17:20 66 100 02/24/20 17:15 63 100 02/24/20 17:10 62 100 02/24/20 17:05 74 100 02/24/20 17:00 79 100 02/24/20 16:55 61 100 02/24/20 16:50 79 100 02/24/20 16:45 76 100 02/24/20 16:30 98.9 F 15 02/24/20 16:27 86 99 02/24/20 16:22 71 100 02/24/20 14:15 74 99 02/24/20 14:10 78 100 02/24/20 14:05 84 100 02/24/20 14:00 89 100 02/24/20 13:55 82 98 02/24/20 13:50 83 99 02/24/20 13:45 98 H 100 02/24/20 13:40 88 99 02/24/20 13:35 80 99 02/24/20 13:30 80 99 02/24/20 13:25 80 98 02/24/20 13:20 77 97 02/24/20 13:15 78 100 02/24/20 13:10 77 99 02/24/20 13:05 86 98 02/24/20 13:00 84 98 02/24/20 12:55 79 98 02/24/20 12:50 88 99 02/24/20 12:45 79 99 02/24/20 12:40 76 98 02/24/20 12:35 91 H 100 02/24/20 12:30 84 99 02/24/20 12:25 79 99 02/24/20 12:20 88 98 02/24/20 12:15 93 H 99 02/24/20 12:10 83 99 02/24/20 12:05 94 H 99 02/24/20 12:00 90 99 02/24/20 11:55 91 H 99 02/24/20 11:50 83 100 02/24/20 11:45 87 100 02/24/20 11:40 81 100 02/24/20 11:35 92 H 100 02/24/20 11:30 87 99 02/24/20 11:25 90 100 02/24/20 11:20 103 H 99 02/24/20 11:15 85 99 02/24/20 11:10 97 H 99 02/24/20 11:05 96 H 100 02/24/20 11:00 102 H 98 02/24/20 10:55 87 137/80 98 02/24/20 10:43 98.3 F 98 H 18 137/80 98 Intake and Output 02/24/20 02/25/20 02/25/20 22:59 06:59 14:59 Intake Total 445.833 Output Total 275 1000 Balance 170.833 -1000 Intake: IV 445.833 Lactated Ringers 1,000 ml 445.833 @ 125 mls/hr IV DIRECT BORIS Rx#:[id number] Output: Urine 275 1000 Void 275 1000 Other: Total, Output Amount 275 200 # Voids Void 1 Estimated Blood Loss 250 - Exam Breasts: Present: normal Abdomen: Present: normal appearance, soft, normal bowel sounds Vulva: both: normal Uterus: Present: normal, firm, fundal height below umbilicus Extremities: Present: normal Incision: Present: normal, intact - Labs Labs: Abnormal lab results 02/24/20 02/24/20 02/25/20 Range/Units 20:18 Unknown 01:11 Hgb (10.1-14.3) gm/dl Hct (30.3-42.9) % RDW 16.2 H (13.2-15.2) % Sodium 132 L (137-145) mmol/L Carbon Dioxide 18 L (22-30) mmol/L Magnesium 5.10 H (1.7-2.3) mg/dL Alkaline Phosphatase 145 H (35-129) units/L Lactate Dehydrogenase 241 H (91-180) units/L Albumin 3.2 L (3.9-5) g/dL 02/25/20 02/25/20 Range/Units 07:01 08:21 Hgb 10.0 L (10.1-14.3) gm/dl Hct 29.4 L (30.3-42.9) % RDW (13.2-15.2) % Sodium (137-145) mmol/L Carbon Dioxide (22-30) mmol/L Magnesium 5.90 H (1.7-2.3) mg/dL Alkaline Phosphatase (35-129) units/L Lactate Dehydrogenase (91-180) units/L Albumin (3.9-5) g/dL
[2020-02-25] MEDS: MAGNESIUM SULFATE 40GM/1000ML 40 GM/1,000 ML BAG IV SCH (13:55)
--- NOTE | 2020-02-25 19:00 | Post Anesthesia Evaluation ---
- Post Anesthesia Evaluation Patient Participated: Yes Airway Patent: Yes Stable Respiratory Function: Yes Nausea/Vomiting: No Temp > 96.8F: Yes Pain Manageable: Yes Adequeate Hydration: Yes Anesthesia Complications: No Block Receding Appropriately: Yes
--- NOTE | 2020-02-26 09:54 | Discharge Summary ---
Providers - Providers Date of Admission: 02/24/20 15:24 Date of discharge: 02/26/20 Attending physician: ANNAMARIE ANDERSON Primary care physician: OUSMANE GODFREY MD Hospitalization Reason for admission: active labor Delivery: Episiotomy: none Laceration: 1st degree (healing as expected) Other procedures: none complications: none Discharge diagnosis: IUP at term delivered, other (anemia) baby: female Hospital course: See admission H&P; OB delivery summary and PP progress Condition at discharge: Good Disposition: DC-01 TO HOME OR SELFCARE - Discharge Diagnoses (1) Status post normal vaginal delivery Status: Acute (2) Anemia due to blood loss, acute Status: Acute Comment: Asymptomatic Continue iron therapy Plan - Provider Discharge Summary Activity: routine, no sex for 6 weeks, no heavy lifting 4 weeks, no strenuous exercise Diet: other (Iron rich diet) Instructions: routine Additional instructions: [] Smoking cessation referral if applicable(refer to patient education folder for contact #) [] Refer to [facility] Booklet Call your doctor immediately for: * Fever > 100.5 * Heavy vaginal bleeding ( >1 pad per hour) * Severe persistent headache * Shortness of breath * Reddened, hot, painful area to leg or breast * Drainage or odor from incision. * Keep laceration clean and dry at all times and follow doctor's instructions regarding bathing/showering - Follow up plan Follow up: OUSMANE GODFREY MD [Primary Care Provider] - 6 Weeks
[2020-02-26 13:25] VITALS: BP 133/90
[2020-02-26] MEDS ORDERED: PE/MO/PET,WH 10 APPLIC/28 GM TUBE PR PRN (16:00)
== END 2020-02-26 13:50 | disposition home or self-care (01) | DRG 806 ==
LOC: TRG 10:35 → APU 10:39 → TRG 15:23 → LD 15:24 → OB 02-25 22:15
PROVIDERS: ADMIT Obstetrics & Gynecology; ATTEND Obstetrics & Gynecology
PROC: 10E0XZZ Delivery of Products of Conception, External Approach (ICD-10-PCS; principal; 2020-02-24)
PROC: 3E0R3BZ Introduction of Anesthetic Agent into Spinal Canal, Percutaneous Approach (ICD-10-PCS; 2020-02-24)
PROC: 00HU33Z Insertion of Infusion Device into Spinal Canal, Percutaneous Approach (ICD-10-PCS; 2020-02-24)
PROC: 0HQ9XZZ Repair Perineum Skin, External Approach (ICD-10-PCS; 2020-02-24)
DX: O14.94 Unspecified pre-eclampsia, complicating childbirth (principal); D62 Acute posthemorrhagic anemia; Z37.0 Single live birth; O42.92 Full-term premature rupture of membranes, unspecified as to length of time between rupture and onset of labor; Z3A.39 39 weeks gestation of pregnancy; O77.0 Labor and delivery complicated by meconium in amniotic fluid; O70.0 First degree perineal laceration during delivery; O90.81 Anemia of the puerperium
CPT/HCPCS: 36415; 80053; 80307; 81001; 83615; 83735; 84550; 85014; 85018; 85027; 86850; 86900; 86901; G0378; J0290; J0360; J3010; J3475; J7120; U0003

== ENCOUNTER 2020-09-12 23:09 | Emergency (ER) | payer MEDICAID, OTHER ==
[2020-09-13 02:16] LABS: Basophils # (Auto) 0.1 K/mm3 (0.0-0.1); Basophils % (Auto) 0.6 % (0.0-1.8); Eosinophils # (Auto) 0.1 K/mm3 (0.0-0.4); Eosinophils % (Auto) 0.7 % (0.0-4.3); Hemoglobin 12.3 gm/dl (10.1-14.3); Lymphocytes % (Auto) 37.5 % (13.4-35.0); Mean Corpuscular HGB Conc 35 % (30-34); Mean Corpuscular Volume 79 fl (79-97); Monocytes # (Auto) 0.5 K/mm3 (0.0-0.8); Monocytes % (Auto) 5.6 % (0.0-7.3); Platelet Count 339 K/mm3 (140-440); Red Blood Count 4.41 M/mm3 (3.65-5.03); Red Cell Distribution Width 15.9 % (13.2-15.2)
[2020-09-13 02:40] LABS: Alanine Aminotransferase 42 units/L (7-56); Albumin 4.6 g/dL (3.9-5); Blood Urea Nitrogen 12 mg/dL (7-17); Calcium 9.4 mg/dL (8.4-10.2); Hemolysis Index 5
[2020-09-13 02:49] LABS: BUN/Creatinine Ratio 17
[2020-09-13 03:45] LABS: Bilirubin,Urine NEG (Negative); Blood,Urine NEG (Negative); Color,Urine Straw (Yellow); Mucus,Urine FEW /HPF; Protein,Urine <15 mg/dL mg/dL (Negative); RBC,Urine < 1.0 /HPF (0.0-6.0); Urobilinogen,Urine < 2.0 mg/dL (<2.0); WBC,Urine < 1.0 /HPF (0.0-6.0)
--- NOTE | 2020-09-13 05:49 | XRay Report ---
CHEST 2 VIEWS INDICATION: pain to right. COMPARISON: FINDINGS: Support devices: None. Heart: Within normal limits. Lungs: No acute air space or interstitial disease. Pleura: No significant pleural effusion. No pneumothorax. Additional findings: None. IMPRESSION: 1. No acute findings. Signer Name: Pablo Wright MD Signed: 09/13/2020 5:45 AM Workstation Name: [id number]
--- NOTE | 2020-09-13 06:40 | Emergency Department Report ---
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 Pain is dull throbbing sharp and worse with range of motion and sometimes deep breaths she reports no nausea, no vomiting, no hemoptysis nonedematous and no number Temazin hematochezia, no fever, chills, sweats. She reports no known traumatic injuries. -: Gradual Radiation: non-radiation Quality: dull Consistency: constant - Related Data Home Medications Medication Instructions Recorded Confirmed Last Taken Ferrous Sulfate [Iron 325 MG] 325 mg PO QDAY 09/10/18 02/24/20 09/09/18 Previous Rx's Medication Instructions Recorded Last Taken Type Ferrous Sulfate [Feosol 325 MG tab] 325 mg PO BID #60 tablet 09/11/18 Unknown Rx Ketorolac [Toradol] 10 mg PO Q6H PRN #14 tablet 09/13/20 Unknown Rx Allergies Allergy/AdvReac Type Severity Reaction Status Date / Time No Known Allergies Allergy Verified 02/02/18 01:49 ED Review of Systems ROS: Stated complaint: CHEST HURTS;STOMACH HURTS Other details as noted in HPI Comment: All other systems reviewed and negative ED Past Medical Hx - Past Medical History Previous Medical History?: Yes Hx Hypertension: No Hx Heart Attack/AMI: No Hx Congestive Heart Failure: No Hx Diabetes: No Hx Deep Vein Thrombosis: No Hx GERD: Yes Hx Renal Disease: No Hx Sickle Cell Disease: No Hx Seizures: No Hx Asthma: No Hx COPD: No Hx HIV: No Additional medical history: Anemia - Surgical History Past Surgical History?: No - Social History Smoking Status: Never Smoker Substance Use Type: None - Medications Home Medications: Home Medications Medication Instructions Recorded Confirmed Last Taken Type Ferrous Sulfate [Iron 325 MG] 325 mg PO QDAY 09/10/18 02/24/20 09/09/18 History Ferrous Sulfate [Feosol 325 MG tab] 325 mg PO BID #60 tablet 09/11/18 02/24/20 Unknown Rx Ketorolac [Toradol] 10 mg PO Q6H PRN #14 tablet 09/13/20 Unknown Rx ED Physical Exam - General Limitations: No Limitations General appearance: alert, in no apparent distress - Head Head exam: Present: atraumatic, normocephalic - Eye Eye exam: Present: normal appearance, EOMI, scleral icterus - ENT ENT exam: Present: normal exam, normal orophraynx, mucous membranes moist, TM's normal bilaterally - Neck Neck exam: Present: normal inspection, full ROM - Respiratory Respiratory exam: Present: normal lung sounds bilaterally, chest wall tenderness (To the right rib region with palpation and range of motion with opposed ADD duction with stretching.). Absent: respiratory distress - Cardiovascular Cardiovascular Exam: Present: regular rate, normal rhythm. Absent: systolic murmur, diastolic murmur, rubs, gallop - GI/Abdominal GI/Abdominal exam: Present: soft, normal bowel sounds, other (Tenderness to the epigastric region tender to the right upper quadrant left upper quadrant. No distention). Absent: distended, tenderness, guarding - Extremities Exam Extremities exam: Present: normal inspection - Back Exam Back exam: Present: normal inspection - Neurological Exam Neurological exam: Present: alert, oriented X3 - Psychiatric Psychiatric exam: Present: normal affect, normal mood - Skin Skin exam: Present: warm, dry, intact, normal color. Absent: rash ED Course Vital Signs 09/13/20 01:20 Temperature 98.5 F Pulse Rate 72 Respiratory 18 Rate Blood Pressure 137/98 O2 Sat by Pulse 100 Oximetry ED Medical Decision Making - Lab Data Result diagrams: 09/13/20 01:34 09/13/20 01:34 - Radiology Data Radiology results: report reviewed [address] [place] [id number] XRay Report Signed Patient: CAITY ARCE MR#: [id number] : 1985 Acct:[id number] Age/Sex: 35 / F ADM Date: 09/12/20 Loc: ED Attending Dr: Ordering Physician: RENETTA ANDINO Date of Service: 09/13/20 Procedure(s): XR chest routine 2V Accession Number(s): [id number] cc: RENETTA ANDINO Fluoro Time In Minutes: CHEST 2 VIEWS INDICATION: pain to right. COMPARISON: FINDINGS: Support devices: None. Heart: Within normal limits. Lungs: No acute air space or interstitial disease. Pleura: No significant pleural effusion. No pneumothorax. Additional findings: None. IMPRESSION: 1. No acute findings. Signer Name: Pablo Wright MD Signed: 09/13/2020 5:45 AM Workstation Name: [id number] Transcribed By: WG Dictated By: Pablo Wright MD Electronically Authenticated By: Pablo Wright MD Signed Date/Time: 09/13/20544 DD/ 4 TD/TT: Print Cancel - Medical Decision Making This patient presents with chest pain that is very unlikely angina or acute coronary syndrome. The emergency department evaluation has not identified any cause for suspicion that this chest pain has a cardiac etiology. Based on their history, and imaging, in addition to the patient's physical exam, I see no evidence at this time for a malignant etiology for the patient's chest pain. There is no acute evidence for pulmonary embolus, acute myocardial infarction, pneumothorax, Boerhaeve syndrome, cardiac tamponade, thoracic artery dissection, or any other emergent cardiac, pulmonary or aortic pathology. Given the low pre-test probability for cardiac etiology of chest pain and the absence of any sign of ischemia or infarction, discharge for outpatient follow-up and further evaluation is reasonable. I have explained to the patient that even though a cardiac problem is very unlikely, follow-up and further testing is required to reduce further the already small uncertainty that exists. Other life-threatening diagnoses have been considered. The patient understands the need to return immediately if their symptoms worsen or they develop any new symptoms, and not to engage in any significant exertional activity until follow-up is obtained. Critical care attestation.: If time is entered above; I have spent that time in minutes in the direct care of this critically ill patient, excluding procedure time. ED Disposition Clinical Impression: Muscle strain of anterior chest wall Disposition: DC-01 TO HOME OR SELFCARE Is pt being admited?: No Does the pt Need Aspirin: No Condition: Stable Instructions: How to Use Cold Therapy, [id number], Abdominal Pain (ED) Prescriptions: Ketorolac [Toradol] 10 mg PO Q6H PRN #14 tablet PRN Reason: Pain Referrals: [facility] [Provider Group] - 3-5 Days PRIMARY [facility]ARE,MD [Primary Care Provider] - 3-5 Days
[2020-09-13 06:48] VITALS: BP 128/95
== END 2020-09-13 06:48 | disposition home or self-care (01) ==
LOC: ED 23:09
DX: S29.011A Strain of muscle and tendon of front wall of thorax, initial encounter (principal); Z79.899 Other long term (current) drug therapy; X58.XXXA Exposure to other specified factors, initial encounter; Y93.89 Activity, other specified; Y92.89 Other specified places as the place of occurrence of the external cause; Y99.8 Other external cause status
CPT/HCPCS: 36415; 71046; 80053; 81001; 83690; 84703; 85025

== ENCOUNTER 2021-11-06 23:21 | Emergency (ER) | payer SELFPAY ==
[2021-11-07] MEDS ORDERED: KETOROLAC 10 MG TAB PO ONE (09:26)
[2021-11-07] MEDS ORDERED: dexAMETHasone 4 MG/ML VIAL PO ONE (09:26)
[2021-11-07 09:39] VITALS: BP 162/99
--- NOTE | 2021-11-07 09:57 | Emergency Department Report ---
ED Headache HPI - General Chief Complaint: High BP Stated Complaint: BLOOD PRESSURE HEADACHE Time Seen by Provider: 11/07/21 09:10 - History of Present Illness Initial Comments: 36-year-old black female with no past medical history presents to the emergency department for evaluation of hypertension and headache. She states that yesterday evening she developed a headache, took her blood pressure at home, and it was elevated, so she decided to come in to the emergency department for further evaluation. She states that she does not have a history of high blood pressure. She denies changes in vision, dizziness, unilateral weakness, difficulty talking, and any changes in gait. Timing/Duration: 24 hours Quality: severe, throbbing Head Injury Location: frontal Associated Symptoms: facial pain, nasal congestion. denies: confusion, fatigue, fever/chills, flushing, loss of consciousness, nausea/vomiting, nasal drainage, numbness in legs/feet, rash, seizures, sinus infection, stiff neck, vision changes, weakness Allergies/Adverse Reactions: Allergies No Known Allergies Allergy (Verified 02/02/18 01:49) Home Medications: Ambulatory Orders Ferrous Sulfate [Iron 325 MG] 325 mg PO QDAY 09/10/18 Ferrous Sulfate [Feosol 325 MG tab] 325 mg PO BID #60 tablet 09/11/18 Ketorolac [Toradol] 10 mg PO Q6H PRN #14 tablet 09/13/20 Levocetirizine Dihydrochloride [Xyzal] 5 mg PO QPM #15 tab 11/07/21 methylPREDNISolone [Medrol 4MG DOSEPAK (21 tabs)] 4 mg PO DAILY #1 pack 11/07/21 ED Review of Systems ROS: Stated complaint: BLOOD PRESSURE HEADACHE Other details as noted in HPI Comment: All other systems reviewed and negative Constitutional: denies: chills, fever, malaise, weakness Eyes: denies: eye pain, eye discharge, vision change ENT: congestion. denies: ear pain, throat pain, dental pain Respiratory: cough. denies: shortness of breath, SOB with exertion, SOB at rest, stridor, wheezing Cardiovascular: denies: chest pain, palpitations, dyspnea on exertion, orthopnea, edema, syncope, paroxysmal nocturnal dyspnea Gastrointestinal: denies: abdominal pain, nausea, vomiting Genitourinary: denies: urgency, dysuria, frequency, hematuria, discharge, abnormal menses Musculoskeletal: denies: back pain Skin: denies: rash, lesions Neurological: headache. denies: weakness, numbness, paresthesias, confusion, abnormal gait Psychiatric: denies: anxiety, depression ED Past Medical Hx - Past Medical History Hx Hypertension: No Hx Heart Attack/AMI: No Hx Congestive Heart Failure: No Hx Diabetes: No Hx Deep Vein Thrombosis: No Hx GERD: Yes Hx Renal Disease: No Hx Sickle Cell Disease: No Hx Seizures: No Hx Asthma: No Hx COPD: No Hx HIV: No Additional medical history: Anemia - Social History Smoking Status: Never Smoker Substance Use Type: None - Medications Home Medications: Home Medications Medication Instructions Recorded Confirmed Last Taken Type Ferrous Sulfate [Iron 325 MG] 325 mg PO QDAY 09/10/18 02/24/20 09/09/18 History Ferrous Sulfate [Feosol 325 MG tab] 325 mg PO BID #60 tablet 09/11/18 02/24/20 Unknown Rx Ketorolac [Toradol] 10 mg PO Q6H PRN #14 tablet 09/13/20 Unknown Rx Levocetirizine Dihydrochloride 5 mg PO QPM #15 tab 11/07/21 Unknown Rx [Xyzal] methylPREDNISolone [Medrol 4MG 4 mg PO DAILY #1 pack 11/07/21 Unknown Rx DOSEPAK (21 tabs)] ED Physical Exam - General Limitations: No Limitations General appearance: alert, in no apparent distress - Head Head exam: Present: atraumatic, normocephalic - Eye Eye exam: Present: normal appearance. Absent: scleral icterus, conjunctival injection, periorbital swelling, periorbital tenderness - ENT ENT exam: Absent: normal exam (Bilateral nasal mucosal edema along with bilateral turbinate swelling), normal orophraynx (Erythema noted to posterior oropharynx.) - Expanded ENT Exam Expanded Mouth exam: Present: normal external inspection Throat exam: Negative: tonsillar erythema, tonsillomegaly, tonsillar exudate, R peritonsillar mass, L peritonsillar mass - Neck Neck exam: Present: normal inspection, full ROM. Absent: tenderness, meningismus, lymphadenopathy - Respiratory Respiratory exam: Present: normal lung sounds bilaterally. Absent: respiratory distress, wheezes, rales, rhonchi, stridor, chest wall tenderness - Cardiovascular Cardiovascular Exam: Present: regular rate, normal heart sounds - GI/Abdominal GI/Abdominal exam: Present: soft, normal bowel sounds. Absent: distended, te nderness, guarding, rebound, rigid - Extremities Exam Extremities exam: Present: normal inspection, normal capillary refill. Absent: pedal edema, joint swelling, calf tenderness - Back Exam Back exam: Present: normal inspection. Absent: CVA tenderness (R), CVA tenderness (L) - Neurological Exam Neurological exam: Present: alert, oriented X3, CN II-XII intact, normal gait, reflexes normal. Absent: motor sensory deficit - Expanded Neurological Exam Expanded Patient oriented to: Present: person, place, time Speech: Present: fluid speech Cranial nerves: EOM's Intact: Normal, Gag Reflex: Normal, Tongue Deviation: Normal, Nystagmus: Normal, Facial Sensation: Normal Cerebellar function: Romberg: Normal Sensory exam: Upper Extremity Light Touch: Normal, Upper Extremity Temperature: Normal, Lower Extremity Light Touch: Normal, Lower Extremity Temperature: Normal Motor strength exam: RUE: 5, LUE: 5, RLE: 5, LLE: 5 Best Eye Response (Dante): (4) open spontaneously Best Motor Response ([place]): (6) obeys commands Best Verbal Response (Dante): (5) oriented Dante Total: 15 - Psychiatric Psychiatric exam: Present: normal affect, normal mood - Skin Skin exam: Present: warm, dry, intact, normal color ED Course Vital Signs 11/06/21 11/07/21 11/07/21 23:32 08:47 09:38 Temperature 98.7 F Pulse Rate 71 76 78 Respiratory 18 18 16 Rate Blood Pressure 188/125 Blood Pressure 138/89 162/99 [Left] O2 Sat by Pulse 99 98 100 Oximetry ED Medical Decision Making - Medical Decision Making 36-year-old black female with no past medical history presents to the emergency department for evaluation of hypertension and headache. She states that yesterday evening she developed a headache, took her blood pressure at home, and it was elevated, so she decided to come in to the emergency department for further evaluation. She states that she does not have a history of high blood pressure. She denies changes in vision, dizziness, unilateral weakness, difficulty talking, and any changes in gait. Physical exam compatible with sinusitis and no acute abnormalities noted. BP improved significantly when headache started to improve as patient waited in the waiting room. Patient given steroids in the emergency department along with Toradol 10 mg p.o. x1 and will be discharged home with Medrol Dosepak and Xyzal to use as directed. She is advised to record and monitor blood pressure r eadings and follow-up with her primary care provider for further evaluation and management of possible diagnosis of hypertension. She is advised to return to the emergency department for any concerning symptoms. She verbalizes understanding of and agreement with plan of care. Critical care attestation.: If time is entered above; I have spent that time in minutes in the direct care of this critically ill patient, excluding procedure time. ED Disposition Clinical Impression: Sinus headache, Elevated blood pressure reading Disposition: 01 HOME / SELF CARE / HOMELESS Is pt being admited?: No Does the pt Need Aspirin: No Condition: Stable Instructions: Form - Headache Record, Sinus Headache, Preventing Hypertension Additional Instructions: Take medication as prescribed. Monitor and record your blood pressure as discussed and then follow-up with your primary care provider for further evaluation and management. Return to the emergency department as needed. Prescriptions: methylPREDNISolone [Medrol 4MG DOSEPAK (21 tabs)] 4 mg PO DAILY #1 pack Levocetirizine Dihydrochloride [Xyzal] 5 mg PO QPM #15 tab Referrals: RADHA OBRIEN MD [Staff Physician] - 3-5 Days Time of Disposition: 09:57
== END 2021-11-07 10:06 | disposition home or self-care (01) ==
LOC: ED 23:21
DX: R51.9 Headache, unspecified (principal); R03.0 Elevated blood-pressure reading, without diagnosis of hypertension; R09.89 Other specified symptoms and signs involving the circulatory and respiratory systems; K21.9 Gastro-esophageal reflux disease without esophagitis; Z79.899 Other long term (current) drug therapy
CPT/HCPCS: 99282; J1100